=== PATIENT | female | born 1985 | race Caucasian/White ===

== ENCOUNTER 2023-08-13 09:03 | Observation (INO) | payer OTHER ==
[~2023-08-13] VITALS: Ht 160 cm; Wt 62.9 kg
[2023-08-13 10:51] LABS: BASO % 0.5 % (0.0-1.0); EOS # 0.2 10^3/uL (0.0-0.5); EOS % 2.9 % (0.0-3.0); HEMATOCRIT 39.9 % (36.0-47.0); HEMOGLOBIN 13.4 g/dl (12.0-15.5); LYMPH % 18.3 % (24.0-44.0); MEAN CORPUSCULAR HEMOGLOBIN 31.2 pg (27.0-33.0); MEAN CORPUSCULAR HGB CONC 33.6 g/dl (32.0-36.5); MEAN CORPUSCULAR VOLUME 92.8 fl (80.0-96.0); MONO # 0.3 10^3/uL (0.0-0.8); MONO % 5.4 % (2.0-8.0); NEUTROPHILS % 72.9 % (36.0-66.0); PLATELET COUNT, AUTOMATED 316 10^3/uL (150-450); WHITE BLOOD COUNT 5.5 10^3/uL (4.0-10.0)
[2023-08-13 11:20] LABS: BLOOD UREA NITROGEN 14 MG/DL (9-23); CALCIUM LEVEL 9.7 MG/DL (8.5-10.1); CARBON DIOXIDE LEVEL 25 MMOL/L (20-31); CHLORIDE LEVEL 114 MMOL/L (98-107); CREATININE FOR GFR 0.63 MG/DL (0.55-1.30); GLOMERULAR FILTRATION RATE > 60.0 (>60); GLUCOSE, FASTING 80 MG/DL (60-100); POTASSIUM SERUM 4.1 MMOL/L (3.5-5.1); SODIUM LEVEL 148 MMOL/L (136-145)
[2023-08-13 11:23] LABS: HCG, SERUM QUALITATIVE NEGATIVE (NEGATIVE)
[2023-08-13] MEDS ORDERED: NS 0.45% 1,000 ML IV SCH (13:00)
[2023-08-13] MEDS: NS 1,000 ML IV ONE (13:06)
[2023-08-13] MEDS: methylPREDNISolone 125MG 2ML VIAL IV ONE (13:06)
[2023-08-13] MEDS ORDERED: AMPH1CAP16 PO (13:19)
[2023-08-13] MEDS ORDERED: HOME MED LIST COMPLETE! XX SCH (13:20)
[2023-08-13] MEDS: PANTOPRAZOLE 40MG VIAL IV SCH (13:43)
[2023-08-13] MEDS ORDERED: LIDOCAINE 2% 100MG/5ML SDV (FOR ANES.) As Ordered ONE (14:26)
[2023-08-13] MEDS ORDERED: propofoL 200 MG/20 ML VIAL As Ordered ONE (14:26)
[2023-08-13] MEDS ORDERED: fentaNYL 100 MCG/2 ML INJECTION As Ordered ONE (14:26)
[2023-08-13 15:10] VITALS: TEMP 97.6
[2023-08-13 15:20] VITALS: BP 131/82; O2SAT 99
== END 2023-08-14 09:37 | disposition home or self-care (01) ==
LOC: M ED 09:03 → M ED INP 12:59
PROVIDERS: ADMIT Family Medicine; ATTEND Family Medicine
DX: T18.128A Food in esophagus causing other injury, initial encounter (principal); Y92.89 Other specified places as the place of occurrence of the external cause; K20.0 Eosinophilic esophagitis; K22.89 Other specified disease of esophagus; K22.2 Esophageal obstruction; R13.10 Dysphagia, unspecified
CPT/HCPCS: 43239; 43247; 80048; 84703; 85025; 88305; 96374; 96375; 99284; C9113; J2919; J3010